=== PATIENT | female | born 1990 | race American Indian/Alaskan Native ===

== ENCOUNTER 2020-06-30 09:47 | Outpatient (CLI) | payer OTHER | END 2020-06-30 10:51 | disposition home or self-care (01) | LOC: NST 09:47 | PROVIDERS: ATTEND Obstetrics & Gynecology Maternal & Fetal Medicine | DX: Z34.83 Encounter for supervision of other normal pregnancy, third trimester (principal) ==

== ENCOUNTER 2020-08-11 08:32 | Outpatient (CLI) | payer OTHER | END 2020-08-11 09:32 | disposition home or self-care (01) | LOC: NST 08:32 | PROVIDERS: ATTEND Obstetrics & Gynecology | DX: Z34.83 Encounter for supervision of other normal pregnancy, third trimester (principal) ==

== ENCOUNTER 2020-08-18 09:09 | Outpatient (CLI) | payer OTHER | END 2020-08-18 09:58 | disposition home or self-care (01) | LOC: NST 09:09 | PROVIDERS: ATTEND Obstetrics & Gynecology | DX: Z34.83 Encounter for supervision of other normal pregnancy, third trimester (principal) ==

== ENCOUNTER 2020-09-01 08:15 | Inpatient (IN) | payer OTHER ==
[~2020-09-01] VITALS: Ht 149.9 cm; Wt 1.8 kg
[2020-09-01] MEDS ORDERED: LABETALOL PO (09:36)
[2020-09-01] MEDS ORDERED: CHILDREN'S ASPI81 MG PO (09:36)
== END 2020-09-08 14:37 | disposition home or self-care (01) | DRG 787 ==
LOC: LDR 13:29 → OB/GYN 13:29 → LDR 09-02 08:05 → OB/GYN 09-03 10:45 → LDR 09-06 08:15 → OB/GYN 09-08 14:37
PROVIDERS: ADMIT Obstetrics & Gynecology; ATTEND Obstetrics & Gynecology
PROC: 4A1HXFZ Monitoring of Products of Conception, Cardiac Rhythm, External Approach (ICD-10-PCS; 2020-09-01)
PROC: 10D00Z1 Extraction of Products of Conception, Low, Open Approach (ICD-10-PCS; principal; 2020-09-06 19:15)
DX: O65.5 Obstructed labor due to abnormality of maternal pelvic organs (principal); O10.02 Pre-existing essential hypertension complicating childbirth; O34.212 Maternal care for vertical scar from previous cesarean delivery; Z3A.36 36 weeks gestation of pregnancy; Z37.0 Single live birth; Z20.822 Contact with and (suspected) exposure to COVID-19